=== PATIENT | male | born 1940 | race Caucasian/White ===

== ENCOUNTER → 2016-09-19 | Outpatient (CLI) | payer MEDICARE, OTHER ==
[2016-09-19 17:28] LABS: ABSOLUTE EOSINOPHILS # (AUTO) 0.2 10^3/uL (0.0-0.6); ABSOLUTE LYMPHOCYTES (AUTO) 1.2 10^3/uL (0.5-4.7); ABSOLUTE MONOCYTES (AUTO) 0.7 10^3/uL (0.1-1.4); ABSOLUTE NEUT (AUTO) 4.5 10^3/uL (1.7-8.2); BASOPHILS % (AUTO) 0.5 % (0-2); EOSINOPHILS % (AUTO) 2.7 % (0-6); HEMATOCRIT 46.6 % (37.9-51.0); HEMOGLOBIN 16.1 g/dL (13.5-17.0); HGB HCT DIFFERENCE 1.7; LYMPHOCYTES % (AUTO) 18.4 % (13-45); MEAN CORPUSCULAR HEMOGLOBIN 31.1 pg (27.0-33.4); MEAN CORPUSCULAR HGB CONC 34.6 g/dL (32.0-36.0); MEAN CORPUSCULAR VOLUME 90 fl (80-97); RED BLOOD COUNT 5.18 10^6/uL (4.35-5.55); RED CELL DISTRIBUTION WIDTH 13.7 % (11.5-14.0); SEGMENTED NEUTROPHILS % (AUTO) 68.4 % (42-78); WHITE BLOOD COUNT 6.6 10^3/uL (4.0-10.5)
== END ==
LOC: OD 16:42
PROVIDERS: ATTEND Nurse Practitioner Adult Health
DX: J45.40 Moderate persistent asthma, uncomplicated (principal)
CPT/HCPCS: 36415; 85025

== ENCOUNTER → 2017-03-29 | Outpatient (CLI) | payer MEDICARE, OTHER ==
--- NOTE | 2017-03-29 13:44 | RADIOLOGY REPORT (SQ) ---
EXAM DESCRIPTION: BARIUM SWALLOW ESOPHAGUS COMPLETED DATE/TIME: 03/29/2017 10:34 am REASON FOR STUDY: HIATAL HERNIA K44.9 DIAPHRAGMATIC HERNIA WITHOUT OBSTRUCTION OR GANGRENE COMPARISON: CT chest 08/30/2014 Two-view chest 02/21/2016 TECHNIQUE: Under fluoroscopic guidance, patient ingested effervescent granules followed by thick and thin barium. Fluoroscopic spot images and routine radiographic images acquired and stored on PACS. 12 MM BARIUM TABLET GIVEN: Yes. No significant delay in passage. LIMITATIONS: None. FLUOROSCOPY TIME: FLUORO TIME: 1 minutes 41 seconds 10 series of digital images saved to PACS. FINDINGS: NEUROMUSCULAR COORDINATION OF SWALLOW: Normal. No aspiration. ESOPHAGEAL MOTILITY: Normal peristalsis. No esophageal spasm. ESOPHAGEAL MUCOSA: Normal mucosa without masses or ulceration. GASTRO-ESOPHAGEAL JUNCTION: Small hiatal hernia with gastroesophageal reflux. No distal esophageal s tricture. Early Schatzki's ring formation. This did not impede passage of the 12 mm barium tablet. NON-GI TRACT STRUCTURES: No significant finding. OTHER: No other significant finding. IMPRESSION: Small hiatal hernia. Gastroesophageal reflux. COMMENT: Quality ID [id number]: Final reports for procedures using fluoroscopy that document radiation exp osure indices, or exposure time and number of fluorographic images (if radiation exposure indices are not available) TECHNICAL DOCUMENTATION: JOB ID: [id number]- All Rights Reserved
== END ==
LOC: RAD 09:20
PROVIDERS: ATTEND Internal Medicine Pulmonary Disease
DX: K44.9 Diaphragmatic hernia without obstruction or gangrene (principal); K21.9 Gastro-esophageal reflux disease without esophagitis
CPT/HCPCS: 74220

== ENCOUNTER → 2017-12-10 | Outpatient (CLI) | payer MEDICARE, OTHER ==
--- NOTE | 2017-12-10 21:07 | XCELERA REPORT ---
[address] [address] Transthoracic Echocardiogram Report Name: SAROJ SMART Age: 77 yrs Gender: Male : 1940 Patient Status: Outpatient Patient Location: Study Date: 12/10/2017 11:06 AM Height: 72 in Weight: 230 lb BSA: 2.3 m2 Reason For Study: EDEMA Ordering Physician: TIN GAMINO Performed By: Stella Lee Interpretation Summary pericardial effusion vs pericardial fat pad. Calcified aorta with no dilatation Mild AV sclerosis, with no or AR Mild mitral annular calcification, no MS mild MR with no LA enlargement LV no hypertrophy, normal LVEF with mild LV diastolic dysfunction, no LV enlargement, and no segmental wall motion abnormality RH dimensions not measured, poorly seen. RVSP probably 27mm Hg RAP 3 mm Hg, nor pulm hypertension. No cardiac etiology for pt's leg edema MMode/2D Measurements & Calculations RVDd: 3.8 cm LVIDd: 5.2 cm FS: 34.9 % Ao root diam: 3.3 cm IVSd: 0.99 cm LVIDs: 3.4 cm EDV(Teich): 127.9 ml LVPWd: 1.0 cm ESV(Teich): 46.3 ml Ao root area: 8.5 cm2 EF(Teich): 63.8 % LA dimension: 3.9 cm Doppler Measurements & Calculations MV E max maureen: MV P1/2t max maureen: Ao V2 max: LV V1 max P.9 cm/sec 86.9 cm/sec 127.3 cm/sec 5.3 mmHg MV A max maureen: MV P1/2t: 87.6 msec Ao max PG: LV V1 max: 87.4 cm/sec 6.5 mmHg 115.0 cm/sec MV E/A: 0.97 MVA(P1/2t): 2.5 cm2 MV dec slope: 290.5 cm/sec2 MV dec time: 0.30 sec PA V2 max: TR max maureen: 85.9 cm/sec 248.4 cm/sec PA max PG: TR max P.7 mmHg 3.0 mmHg Left Ventricle The left ventricle is normal in size, thickness and function. There is normal left ventricular wall thickness. The left ventricular ejection fraction is normal. LV EF is 65%. Doppler measurements suggest impaired left ventricular relaxation, which is associated with grade I/IV or mild diastolic dysfunction. No regional wall motion abnormalities noted. There is no thrombus. Right Ventricle The right ventricle is not well visualized secondary to technical limitations. The right ventricular systolic function is normal. Atria Right atrium not well visualized secondary to technical limitations. The left atrial size is normal. The interatrial septum is intact with no evidence for an atrial septal defect. Mitral Valve There is mild mitral annular calcification. The mitral valve is normal in structure and function. There is no evidence of mitral valve prolapse. There is no mitral valve stenosis. There is a mild amount of mitral regurgitation. Aortic Valve The aortic valve opens well. The aortic valve is mildly calcified. The aortic valve is trileaflet. There is no aortic valvular vegetation. There is no aortic valve stenosis. No aortic regurgitation is present. Tricuspid Valve The tricuspid is normal in structure and function. There is no tricuspid stenosis. There is a trace or physiologic amount of tricuspid regurgitation. Pulmonic Valve The pulmonic valve is not well visualized. There is no pulmonic valvular regurgitation. Great Vessels There is aortic root sclerosis/calcification. The aortic root is normal size. Effusions Small pericardial effusion. I WMSI = 1.00 % Normal = 100 Segments Size X - Cannot 1 - Normal 2 - 3 - Akinetic4 - 1-2 small Interpret Hypokinetic Dyskinetic 3-5 moderate 5 - 6-14 large Aneurysmal 15-16 diffuse : TIN GAMINO > Kade Flower
== END ==
LOC: SP 10:43
PROVIDERS: ATTEND Internal Medicine Critical Care Medicine
DX: R60.0 Localized edema (principal)
CPT/HCPCS: 93306